=== PATIENT | male | born 1965 | race Caucasian/White ===

== ENCOUNTER → 2018-03-06 | Outpatient (CLI) | payer OTHER ==
--- NOTE | 2018-03-06 09:10 | US ---
EXAMINATION TYPE: US thyroid st tissue head/neck DATE OF EXAM: 03/06/2018 COMPARISON: NONE CLINICAL HISTORY: R22.1 localized swelling, mass and lump, neck. Patient indicates lump, right subman dibular as per order Left area of interest scanned. Corresponding area scanned on right for comparison. No gross abnormality identified IMPRESSION: 1. No suspicious abnormality at the palpable region of swelling left submandibular area. 2. If additional evaluation would be of benefit, CT with contrast of the neck could be performed.
== END | disposition home or self-care (01) ==
LOC: RADUSWWP 07:00
PROVIDERS: ATTEND Family Medicine
DX: R22.1 Localized swelling, mass and lump, neck (principal)
CPT/HCPCS: 76536

== ENCOUNTER 2021-02-09 20:14 | Emergency (ER) | payer OTHER ==
[2021-02-09 20:20] VITALS: BP 142/88; PULSE 77; RESP 17; TEMP 98.8
[2021-02-09] MEDS ORDERED: DIPH,PERTUS(ACELL)TETVAC-LF 0.5 ML VIAL IM ONE (20:34)
[2021-02-09] MEDS ORDERED: ceFAZolin 1,000 MG VIAL (IM USE) IM STA (20:34)
[2021-02-09] MEDS ORDERED: LIDOCAINE 1% INJ 10MG/ML (20 ML MDV) SQ ONE (21:01)
[2021-02-09] MEDS ORDERED: BACITRACIN OINT 1 EACH PACKET TOPICAL ONE (21:01)
--- NOTE | 2021-02-09 21:09 | XR ---
RESULT: HISTORY: trauma TECHNIQUE: 3 views of the left middle finger were obtained. COMPARISON: None. FINDINGS: There is a minimally displaced oblique fracture of the middle finger distal phalangeal tuft. No evide nce of dislocation or radiopaque foreign body. IMPRESSION: Middle finger distal phalangeal tuft fracture.
--- NOTE | 2021-02-09 21:33 | ED ---
Wound/Laceration HPI - General Chief Complaint: Wound/Laceration Stated Complaint: Finger injury Time Seen by Provider: 02/09/21 20:23 Source: patient Mode of arrival: ambulatory Limitations: no limitations - History of Present Illness Initial Comments: Patient is a 55-year-old male presenting to the emergency department from urgent care with an open fracture to his left third digit. Patient states he was holding onto a glass davis of lasagna AND HAD SOMETHING ELSE AND HIS OTHER HAND WHEN HE TRIPPED GOING UP THE STAIRS AND HE SMASHED HIS FINGER IN BETWEEN THE LASAGNA AND THE WALL. HE HAS A LACERATION NOTED TO THE PALMAR ASPECT OF HIS LEFT THIRD DIGIT. HE STATES urgent care SAID THAT HE HAD A FRACTURE UNDERNEATH AND CONSIDER THIS AN OPEN FRACTURE SO SENT HIM IN THE ER FOR FURTHER TREATMENT AND EVALUATION. HIS TETANUS VACCINE IS NOT UP TO DATE. THEY DID NOT GIVE HIM ANTIBIOTICS PRIOR TO ARRIVAL. He states his pain is minimal. He denies any other injuries, he has no further complaints. - Related Data Previous Rx's Medication Instructions Recorded Cephalexin [Keflex] 500 mg PO BID 5 Days #10 cap 02/09/21 Allergies Allergy/AdvReac Type Severity Reaction Status Date / Time No Known Allergies Allergy Verified 02/09/21 20:19 Review of Systems ROS Statement: Those systems with pertinent positive or pertinent negative responses have been documented in the HPI. ROS Other: All systems not noted in ROS Statement are negative. Past Medical History Past Medical History: No Reported History History of Any Multi-Drug Resistant Organisms: None Reported Past Surgical History: No Surgical Hx Reported Past Psychological History: No Psychological Hx Reported Smoking Status: Former smoker Past Alcohol Use History: Occasional Past Drug Use History: None Reported General Exam - General Exam Comments Initial Comments: GENERAL: Patient is well-developed and well-nourished. Patient is nontoxic and in no acute distress. HEAD: Atraumatic, normocephalic. EYES: Pupils equal round and reactive to light, extraocular movements intact, sclera anicteric, conjunctiva are normal. Eyelids were unremarkable. ENT: Moist mucous membranes. NECK: Normal range of motion, supple without lymphadenopathy or JVD. LUNGS: Unlabored respirations. Breath sounds clear to auscultation bilaterally and equal. No wheezes rales or rhonchi. HEART: Regular rate and rhythm without murmurs, rubs or gallops. MUSCULOSKELETAL: Patient has full range of motion of the left hand and fingers. He has some mild swelling noted to the distal end of the left third digit, erythema noted. No clubbing or cyanosis. SKIN: Warm, Dry, normal turgor, no rashes. Patient has a 1 cm laceration to the palmar aspect of the left third digit, distal end. He also has a subungual hematoma Limitations: no limitations Course Vital Signs 02/09/21 20:15 Temperature 98.8 F Pulse Rate 77 Respiratory 17 Rate Blood Pressure 142/88 O2 Sat by Pulse 99 Oximetry Procedures - Procedures Initial comment: I used a 23-gauge needle to put a hole in the nail of the left third digit to drain the subungual hematoma, lots of bloody drainage. He tolerated procedure well. - Laceration Laceration #1 Consent Obtained: verbal consent Indication: laceration Site: other (Left third digit, distal aspect) Size (cm): 1 Description: linear Depth: simple, single layer Anesthetic Used: lidocaine 1% Anesthesia Technique: local infiltration Amount (mls): 2 Pre-repair: irrigated extensively Type of Sutures: nylon Size of Sutures: 5-0 Number of Sutures: 3 Technique: simple, interrupted Patient Tolerated Procedure: well Medical Decision Making - Medical Decision Making Patient is a 55-year-old male here with an open left third digit distal tuft fracture that happened about an hour prior to arrival. He was sent in from urgent care. He did update his tetanus vaccine, he also had 1 g of kefzol. Patient's wound was cleaned, closed with 3, 5-0 sutures. I also used a needle to drain his subungual hematoma. Patient was also given a splint. Patient will follow up with orthopedics. I will continue him on antibiotics. He is agreeable to this plan of care. Sutures removed in 7-10 days. Case discussed with Dr. Martin. Disposition Clinical Impression: Laceration of left middle finger, Open fracture of tuft of distal phalanx of finger, Subungual hematoma of left middle finger Disposition: HOME SELF-CARE Condition: Stable Instructions (If sedation given, give patient instructions): Care For Your Stitches (ED), Finger Fracture (ED) Additional Instructions: Please return to the Emergency Department if symptoms worsen or any other concerns. Keep area clean and dry. May wash hands and shower as normal. Sutures need to be removed in 7-10 days. Take antibiotics as prescribed. Please follow up with orthopedic doctor as discussed. Prescriptions: Cephalexin [Keflex] 500 mg PO BID 5 Days #10 cap Is patient prescribed a controlled substance at d/c from ED?: No Referrals: Miki Doherty DO [Primary Care Provider] - 1-2 days Cleveland Cai DO [Doctor of Osteopathic Medicine] - 1-2 days Time of Disposition: 21:32
== END 2021-02-09 21:44 | disposition home or self-care (01) ==
LOC: EC 20:14
DX: S62.633B Displaced fracture of distal phalanx of left middle finger, initial encounter for open fracture (principal); Z23 Encounter for immunization; Z87.891 Personal history of nicotine dependence; W23.0XXA Caught, crushed, jammed, or pinched between moving objects, initial encounter
CPT/HCPCS: 73140; 90715; 12001; 90471; 96372; 99283; J0690; J2001; 11765

== ENCOUNTER 2021-06-02 06:50 | Day surgery (SDC) | payer OTHER ==
[2021-05-30 15:06] VITALS: BMI 25.0
[~2021-06-02 06:50] MED LIST: LACTATED RINGERS 1,000 ML IV SCH
[2021-06-02 07:30] VITALS: RESP 16; TEMP 97.3
[2021-06-02] MEDS ORDERED: PROPOFOL 10 MG/ML 20 ML VIAL IV ONE (07:34)
--- NOTE | 2021-06-02 07:38 | P.HPIHPCON ---
History of Present Illness H&P Date: 06/02/21 56-year-old male presents for screening colonoscopy. He has never had a colonoscopy previously. Denies any blood in the stool. Denies any family history of colon cancer. Denies any abdominal pain at this time. Consent for Procedure: I have explained the operation/procedure to the patient, including the risks, benefits, side effects, alternative therapies (including not receiving the proposed treatment or service), the likelihood of the patient achieving his/her goals, and potential recuperation problems for the procedure/sedation/analgesia, as well as any blood products, if indicated. I also explained to the patient the risks, benefits and side effects of the alternatives, as well as the risks related to not receiving the proposed procedure, care, treatment, or services. - Review of Systems All systems: negative Past Medical History Past Medical History: No Reported History History of Any Multi-Drug Resistant Organisms: None Reported Past Surgical History: No Surgical Hx Reported Past Anesthesia/Blood Transfusion Reactions: No Reported Reaction Additional Past Anesthesia/Blood Transfusion Reaction / Comment(s): NO PRIOR SURGICAL HX Smoking Status: Former smoker - Past Family History Father Family Medical History: Cancer Medications and Allergies Home Medications Medication Instructions Recorded Confirmed Type No Known Home Medications 05/30/21 05/30/21 History Allergies Allergy/AdvReac Type Severity Reaction Status Date / Time No Known Allergies Allergy Verified 06/02/21 07:14 Surgical - Exam Osteopathic Statement: *. No significant issues noted on an osteopathic structural exam other than those noted in the History and Physical/Consult. Vital Signs Temp Pulse Resp BP Pulse Ox 97.3 F L 73 16 137/83 100 06/02/21 07:15 06/02/21 07:15 06/02/21 07:15 06/02/21 07:15 06/02/21 07:15 - General well nourished, no distress - Neck trachea midline - Respiratory normal respiratory effort - Abdomen Abdomen: soft, non tender - Psychiatric oriented to time, oriented to person, oriented to place Assessment and Plan Plan: Plan is for screening colonoscopy. Risks, benefits and alternatives were provided to the patient. He did provide consent. Further recommendations after procedure.
--- NOTE | 2021-06-02 07:51 | P.PCN ---
Date of Procedure: 06/02/21 Preoperative Diagnosis: Screening Postoperative Diagnosis: Cecal polyp Internal hemorrhoids Procedure(s) Performed: Colonoscopy with forcep polypectomy Anesthesia: MAC Surgeon: Leon Meyer Pathology: other (Cecal polyp) Condition: stable Disposition: same day Indications for Procedure: 56-year-old male presents for screening colonoscopy. He denies any blood in his stool. Denies any family history of colon cancer. Operative Findings: Small cecal polyp Description of Procedure: The patient was brought to the endoscopy suite and placed in left lateral decubitus position and adequate sedation was achieved using conscious sedation. A digital rectal exam was performed and mild internal hemorrhoids were palpated. An endoscope was then placed in the rectum and advanced to the cecum as identified by landmarks including the appendiceal orifice and the ileocecal valve. The prep was good. The colonoscope was then slowly withdrawn, examining for any mucosal abnormalities. The cecum, ascending, transverse, descending and sigmoid colon were visualized adequately. There were no obvious neoplastic lesions noted throughout the colon. A small polyp was noted in the cecum. This was removed with forcep polypectomy. There is no significant evidence of diverticulosis. Retroflexion was performed in the rectum and internal hemorrhoids were visible. Excess air was removed, the colonoscope withdrawn and the procedure terminated. The patient was then transferred to the recovery unit in stable condition. Repeat colonoscopy should be performed in 5 years.
[2021-06-02 07:58] VITALS: PULSE 55
[2021-06-02 08:22] VITALS: BP 114/73
== END 2021-06-02 08:32 | disposition home or self-care (01) ==
LOC: ORWHC2ENDO 06:50
PROVIDERS: ATTEND Surgery
DX: Z12.11 Encounter for screening for malignant neoplasm of colon (principal); K64.8 Other hemorrhoids; Z87.891 Personal history of nicotine dependence
CPT/HCPCS: 88305; 45380; J2704